=== PATIENT | female | born 1995 | race African-American/Black ===

== ENCOUNTER 2019-02-09 10:35 | Emergency (ER) | payer OTHER ==
[~2019-02-09] VITALS: Ht 175.3 cm; Wt 90.7 kg
[2019-02-09] MEDS ORDERED: IBUPROFEN 200200 M1 PO (10:51)
[2019-02-09 11:16] LABS: ABSOLUTE NEUTROPHILS 7.3 thou/uL (1.4-8.2); BASOPHILS 0.7 % (0.0-2.0); EOSINOPHILS 0.2 % (0.0-3.0); HEMATOCRIT 43.4 % (37.0-47.0); HEMOGLOBIN 15.2 gm/dL (12.0-15.0); LYMPHOCYTES 11.5 % (24.0-44.0); MCH 33.3 pg (26.0-34.0); MCV 95.1 fL (80.0-100.0); MONOCYTES 3.9 % (1.0-8.0); PLATELET COUNT 361 thou/uL (150-400); POLYS 83.7 % (36.0-66.0); RBC 4.56 mil/uL (4.20-5.00); RDW 12.3 % (10.5-14.5); WBC 8.7 thou/uL (4.0-11.0)
[2019-02-09 11:28] LABS: CALCIUM 10.2 mg/dL (8.5-10.1); CREATININE 0.8 mg/dL (0.6-1.0); POTASSIUM 3.5 mmol/L (3.5-5.1)
[2019-02-09 11:34] LABS: ALBUMIN 4.6 g/dL (3.4-5.0); DIRECT BILIRUBIN 0.1 mg/dL (<0.1-0.2); TOTAL BILIRUBIN 0.6 mg/dL (<0.1-1.0); TOTAL PROTEIN 8.8 g/dL (6.4-8.2)
[2019-02-09 11:35] LABS: URINE BILIRUBIN NEGATIVE (Negative); URINE BLOOD TRACE (Negative); URINE CLARITY CLEAR; URINE COLOR YELLOW; URINE GLUCOSE-RANDOM* NEGATIVE (Negative); URINE KETONES 2+ (Negative); URINE LEUKOCYTES-REFLEX NEGATIVE (Negative); URINE NITRITE-REFLEX NEGATIVE (Negative); URINE PROTEIN (DIPSTICK) 1+ (Negative)
[2019-02-09 11:46] LABS: SQUAMOUS >10 Many /LPF (0-3)
[2019-02-09 11:47] LABS: CASTS None Seen /LPF (None Seen); CRYSTALS None Seen /LPF (None Seen); URINE WBC-REFLEX 0-5 Rare /HPF (0-5)
[2019-02-09 11:48] LABS: BACTERIA-REFLEX 1-9 Few /HPF (None Seen); URINE RBC None Seen /HPF (0-2)
[2019-02-09] MEDS ORDERED: ZOFRAN ODT4 MG PO (13:42)
[2019-02-09 14:01] VITALS: BP 114/59
== END 2019-02-09 13:58 | disposition home or self-care (01) ==
LOC: ER 10:35
PROVIDERS: Emergency Medicine
DX: R10.9 Unspecified abdominal pain (principal); R11.2 Nausea with vomiting, unspecified; F17.210 Nicotine dependence, cigarettes, uncomplicated; Z88.6 Allergy status to analgesic agent